=== PATIENT | female | born 1970 | race Two or more races ===

== ENCOUNTER → 2017-03-27 | Outpatient (CLI) | payer OTHER ==
--- NOTE | 2017-03-27 16:35 | Diagnostic Imaging Report ---
Indication: SCREEN Technique: Bilateral Craniocaudal and mediolateral oblique views were obtained. Comparison: 12/15/2015, 01/15/2016 diagnostic mammogram, 07/14/2014, 12/25/2013, 01/09/2014 diagnostic mammogram Findings: The breasts are heterogeneously dense, which may obscure small masses. No parenchymal asymmetry nor architectural distortion. There are benign calcifications bilaterally. There is a 10 mm asymmetry at the right breast 12:00 position, looking slightly smaller than on the previous study. On the craniocaudal view, there is suggestion of a new 15 mm asymmetry in the subareolar right breast just lateral to midline and only equivocally demonstrated on the oblique view. This was not evident previously. No skin thickening nor nipple retraction. No axillary adenopathy. . Impression: Questionable new retroareolar 15 mm asymmetry in the right breast, seen on the craniocaudal view and only equivocally if at all on the oblique view. Could represent overlapping parenchymal shadows or, in view of history of prior cysts, a new cyst. Further evaluation with spot compression mammography and ultrasound is recommended. 12:00 10 mm asymmetry, appearing smaller than on the prior study. Subsequent to the prior November 2015 exam, this was the demonstrated to be a cyst and aspirated under ultrasound. This presumably therefore represents recurrence of a benign simple cyst. BI-RADS category Zero-needs additional imaging evaluation Breast density BI-RADS type C-heterogeneously dense breasts, which may obscure small masses
== END | disposition home or self-care (01) ==
LOC: MAMMO 13:08
DX: Z12.31 Encounter for screening mammogram for malignant neoplasm of breast (principal)
CPT/HCPCS: 77067

== ENCOUNTER 2017-05-09 10:05 | Outpatient (CLI) | payer OTHER ==
--- NOTE | 2017-05-09 15:31 | Diagnostic Imaging Report ---
Indications: Nodular asymmetry 6:00 retroareolar aspect right breast on recent screening mammogram, BI-RADS category zero Technique: Low dose film screen mammograms the right breast performed and rolled craniocaudal projections. Compression spot imaging performed in craniocaudal and mediolateral oblique projections. Targeted ultrasound of the right breast also performed. Findings: Comparison: Screening mammogram 03/27/17 Circumscribed nodular asymmetry persists in the 6:00 retroareolar aspect of the right breast. It remains smoothly marginated without spiculation, architectural distortion, or suspicious microcalcifications. Concurrent ultrasound reveals a 6 x 3 mm sharply circumscribed, smoothly marginated, mildly lobulated nodule in the 6:00 position of the retroareolar aspect the right breast, corresponding to mammographic finding. It appears comprised of multiple small anechoic spaces by echogenic septae. It demonstrates a sharply defined posterior wall and increased through transmission as well as low aspect ratio. IMPRESSION: Persistence of the 6:00 retroareolar nodule in right breast, imaging characteristics of which are most compatible with acinar cyst. BI-RADS category 3 Recommendation: Followup diagnostic mammography and ultrasound of the right breast in 6 months. Alternatively, at patient's preference, ultrasound-guided fine needle aspiration may be performed.
== END 2017-05-09 12:05 | disposition home or self-care (01) ==
LOC: MAMMO 10:05
DX: R92.8 Other abnormal and inconclusive findings on diagnostic imaging of breast (principal); N63 Unspecified lump in breast
CPT/HCPCS: 76641; G0206